=== PATIENT | male | born 1980 | race Asian ===

== ENCOUNTER 2019-10-24 00:14 | Emergency (ER) | payer OTHER ==
[~2019-10-24] VITALS: Ht 162.6 cm; Wt 79.5 kg
[~2019-10-24 00:14] MED LIST: AMLO5TAB9 PO; LOSA25TA41 PO
[2019-10-24] MEDS ORDERED: LIDOCAINE 1% 10 ML VIAL INJ ONE (02:00)
[2019-10-24] MEDS ORDERED: POVIDONE-IODINE 10% 15 ML SOLUTION UD ONE (02:17)
[2019-10-24] MEDS ORDERED: LIDOCAINE/PF 1% 2 ML VIAL IM ONE (02:30)
[2019-10-24] MEDS ORDERED: CefTRIAXone SODIUM 1 GM/VIAL IM ONE (02:30)
[2019-10-24] MEDS ORDERED: KETOROLAC TROMETHAMINE 60 MG/2 ML VIAL IM ONE (02:45)
[2019-10-24 02:50] VITALS: BP 142/94
== END 2019-10-24 03:03 | disposition home or self-care (01) ==
LOC: EMS 00:15
DX: L02.214 Cutaneous abscess of groin (principal); I10 Essential (primary) hypertension; F17.210 Nicotine dependence, cigarettes, uncomplicated; Z98.890 Other specified postprocedural states
CPT/HCPCS: 10060; 87070; 87077; 87186; 87205; 96372; 99283; J0696; J1885; J3490 ×2